=== PATIENT | female | born 1960 | race Caucasian/White ===

== ENCOUNTER → 2021-09-03 | Outpatient (REF) | payer MEDICARE, OTHER | LOC: M SFHCWAGY 13:27 | PROVIDERS: ATTEND Nurse Practitioner Women's Health | DX: Z12.4 Encounter for screening for malignant neoplasm of cervix (principal); N95.8 Other specified menopausal and perimenopausal disorders | CPT/HCPCS: 87624; G0101; G0123; G0463 ==